=== PATIENT | female | born 2000 | race Caucasian/White ===

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

== ENCOUNTER → 2021-02-03 | Outpatient (CLI) | payer BC ==
--- NOTE | 2021-02-03 14:51 | REP ---
INDICATION: N63.10 RT BREAST LUMP W/PAIN. Patient is status post needle biopsy right breast mass October 11, 2017 which produce a diagnosis of fibroadenoma and surrounding benign breast parenchyma. The patient reports that the lump has progressively enlarged in the interval since that time. COMPARISON: Comparison sonography 10/11/2017. TECHNIQUE: A skin marker is affixed to the skin at the site of the palpable lump in the right breast.. Craniocaudal, mediolateral oblique, and mediolateral views of the right breast are obtained. 3D tomography is carried out. Targeted right breast sonography is performed. This mammogram was interpreted with the aid of an FDA-approved computer-aided detection system. FINDINGS: Heterogeneous fibroglandular background echotexture is seen. Mammographic images of the right breast demonstrate a macrolobulated large confluent masslike density projecting in the superomedial quadrant of the right breast. This has overall dimensions up to 9.6 cm. Its margins are well circumscribed. No microcalcification or spiculation is appreciated. No worrisome skin changes seen. The Volpara volumetric breast density pattern is C. Targeted ultrasound: Targeted right breast sonography demonstrates a macrolobulated hypoechoic mass versus 3 adjacent mass lesions in the right breast medially. The largest 3 components of this macrolobulated hypoechoic mass measure as follows: 5.2 x 2.9 x 4.2 cm, 1.4 x 0.7 x 1.3 cm, and 4.2 x 2.5 x 2.9 cm. These hypoechoic masses of the long axis parallel to the skin. There is some enhanced through transmission. The margins are well defined. IMPRESSION: BIRADS/ACR category 4 suspicious right breast mammographic and sonographic findings. Large solid macrolobulated mass versus masses in the right breast superiorly and medially. 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 Needle biopsy may not be international account representative of the pathology in the whole lesion because of the lesion size. Consider surgical excision. This patient's Tyrer-Cuzick lifetime breast cancer risk assessment score is 17.1%. RECOMMENDATION: Consider surgical excision.. The patient letter being requested is M4 dense. <Electronically signed by Lloyd Vang > 02/03/21 [id number]
== END ==
LOC: M WHC 10:46
PROVIDERS: ATTEND Advanced Practice Midwife
DX: R92.8 Other abnormal and inconclusive findings on diagnostic imaging of breast (principal); N63.15 Unspecified lump in the right breast, overlapping quadrants; Z86.018 Personal history of other benign neoplasm
CPT/HCPCS: 76642; 77065; G0279

== ENCOUNTER → 2021-02-23 | Outpatient (REF) | payer BC ==
[2021-02-23 15:32] LABS: HEMATOCRIT 42.1 % (36.0-47.0); HEMOGLOBIN 13.5 g/dl (12.0-15.5); MEAN CORPUSCULAR HEMOGLOBIN 27.6 pg (27.0-33.0); MEAN CORPUSCULAR HGB CONC 32.1 g/dl (32.0-36.5); MEAN CORPUSCULAR VOLUME 85.9 fl (80.0-96.0); PLATELET COUNT, AUTOMATED 303 10^3/uL (150-450); WHITE BLOOD COUNT 9.4 10^3/uL (4.0-10.0)
[2021-02-23 16:03] LABS: BLOOD UREA NITROGEN 17 MG/DL (7-18); CALCIUM LEVEL 9.1 MG/DL (8.5-10.1); CARBON DIOXIDE LEVEL 27 MEQ/L (21-32); CHLORIDE LEVEL 107 MEQ/L (98-107); GLOMERULAR FILTRATION RATE > 60.0 (>60); GLUCOSE, FASTING 79 MG/DL (70-100); POTASSIUM SERUM 4.2 MEQ/L (3.5-5.1); SODIUM LEVEL 139 MEQ/L (136-145)
== END ==
LOC: M PLALAB 12:11
PROVIDERS: ATTEND Surgery
DX: D24.1 Benign neoplasm of right breast (principal)

== ENCOUNTER → 2021-03-04 | Outpatient (CLI) | payer BC | LOC: M LABSMTC 11:42 | PROVIDERS: ATTEND Anesthesiology | DX: Z01.812 Encounter for preprocedural laboratory examination (principal); Z11.52 Encounter for screening for COVID-19 ==

== ENCOUNTER 2021-03-09 07:53 | Day surgery (SDC) | payer BC ==
[~2021-03-09] VITALS: Ht 177.8 cm; Wt 115.1 kg
[~2021-03-09 07:53] MED LIST changes: +HEPARIN SOD (PORCINE) 5000UNITS/ML 1ML VIAL/SYRINGE SQ ONE; -LIDOCAINE 1% MDV 20ML VIAL As Ordered; +LIDOCAINE 1% MDV 20ML VIAL SQ PRN; +LR 1,000 ML IV ONE; +ceFAZolin SOD 2 GM in IV 1 EA IV ONE
[2021-03-09] MEDS ORDERED: SCOPOLAMINE 1MG TRANSDERMAL PATCH TOP ONE (08:30)
[2021-03-09] MEDS ORDERED: fentaNYL 100 MCG/2 ML INJECTION (J3010) As Ordered ONE (09:19)
[2021-03-09] MEDS ORDERED: LIDOCAINE 2% 100MG/5ML SDV (FOR ANES.) As Ordered ONE (09:19)
[2021-03-09] MEDS ORDERED: dexameTHASONE 4 MG/ML 1ML VIAL (J1100 PER 1MG) As Ordered ONE (09:19)
[2021-03-09] MEDS ORDERED: MIDAZOLAM INJ 2MG/2ML VIAL (J2250 PER 1MG) As Ordered ONE (09:19)
[2021-03-09] MEDS ORDERED: propofoL 200 MG/20 ML VIAL As Ordered ONE (09:19)
[2021-03-09] MEDS ORDERED: ACETAMINOPHEN 1000MG 100ML IV BTL (OFIRMEV) (J0131 PER 10MG) As Ordered ONE (09:19)
[2021-03-09] MEDS ORDERED: ONDANSETRON 4MG/2ML VIAL As Ordered ONE (09:19)
[2021-03-09] MEDS ORDERED: LIDOCAINE 1% SDV 30ML VIAL As Ordered ONE (10:16)
[2021-03-09] MEDS ORDERED: BUPIVACAINE HCL 0.25% 30ML VIAL As Ordered ONE (10:16)
[2021-03-09] MEDS ORDERED: ONDANSETRON 4MG/2ML VIAL IV PRN (12:10)
[2021-03-09] MEDS ORDERED: LR 1,000 ML IV SCH (12:10)
[2021-03-09] MEDS ORDERED: fentaNYL 100 MCG/2 ML INJECTION (J3010) IV PRN (12:10)
[2021-03-09] MEDS ORDERED: oxyCODONE 5MG TAB PO PRN (12:10)
[2021-03-09] MEDS ORDERED: ROXI1TAB2 PO (12:31)
[2021-03-09 13:55] VITALS: BP 130/68
--- NOTE | 2021-03-09 17:04 | REP ---
INDICATION: RIGHT BREAST EXCISIONAL BIOPSY OF BREAST MASS -NO WIRE. COMPARISON: Comparison mammography February 03, 2021.. TECHNIQUE: Four views including photograph. FINDINGS: Specimen radiography demonstrates a macrolobulated smoothly marginated soft tissue mass without observable calcification. IMPRESSION: Specimen radiography demonstrates the removed macrolobulated soft tissue mass. <Electronically signed by Lloyd Vang > 03/09/21 0052
--- NOTE | 2021-03-12 13:23 | ROOPDOC ---
[facility] Report Of Operation Report of Operation DATE OF PROCEDURE: 03/09/21 PREPROCEDURE DIAGNOSES: large right breast mass POSTPROCEDURE DIAGNOSES: large right breast mass PROCEDURE: right breast excisional biopsy SURGEON: Blanca Figueroa ANESTHESIA: general ESTIMATED BLOOD LOSS: Approximately 25 mL. COMPLICATIONS: none REMARKS: multilobulated right breast mass excised measuring 9x5.5cm DESCRIPTION OF PROCEDURE: INDICATIONS: Ms. Day is a 20-year-old woman who was found to have a large palpable mass in the right breast. Diagnostic imaging was done and confirmed large suspicious mass in the right breast. Patient had biopsy of this lesion couple years ago which came back as fibroadenoma. Excision was recommended as the repeat bx likely will not be truly compliance representative dealer of entire lesion. Excisional biopsy of the right breast was offered to the patient. Risks and possible complications of surgical procedure including bleeding, infection and injury to surrounding structures were explained to the patient and she wished to proceed. Consent was signed. My initials were placed on the operative site. Subcutaneous injection of 5000 units of heparin was done in Preop. DETAILS: Patient was taken to the operating room and placed on the operating room table. A sign in was called stating patients name, date of and the procedure to be done. Preoperative antibiotics were infused. Smooth induction of general anesthesia was done. Patients hands were extended on arm rests. Care was taken not to over extend the arms. Pillow was placed under the knees and a foam was placed under the heels. Sequential compression devices were placed and assured to function correctly. Patients right breast and axilla were prepped and draped in the usual fashion. Appropriate time out was done. Patients name, date of , and the procedure to be done were confirmed. Next, local anesthetic using 1% lidocaine and 0.25 % Marcaine 50/50 mix was injected at the site of planned right periareolar incision. The incision was made with the scalpel. Subcutaneous skin flaps were raised. Palpation was used to guide the dissection. A large lobulated mass was felt and completely excised. This mass measured 9x5.5 cm. The specimen was marked with short superior stitch, long stitch lateral. Specimen was then placed on the grid and placed in [employer] Specimen Imaging System. The image revealed multilobulated mass and no clip. Of note clip was not seen on mammogram either even though patient had previous biopsy of this lesion. The specimen was labeled with patients name and right excisional biopsy and sent to pathology. Next, the wound was irrigated thoroughly and adequate hemostasis was assured. Additional local anesthetic was injected into surrounding tissues. space was approximated with 2-0 Vicryl. The dermis was closed with 3-0 Vicryl and skin was closed with 4-0 Monocryl. Surgical glue was placed over the incision. Patient emerged from the anesthesia without any problems. Fluffs were placed over the operative site and patients chest was wrapped snuggly in the LELA wrap. Sponge and instrument counts were done and were correct. Patient tolerated procedure well and was taken to recovery unit in stable condition. BLANCA FIGUEROA DO March 12, 2021 13:23
== END 2021-03-09 14:01 | disposition home or self-care (01) ==
LOC: M SDC 07:53
PROVIDERS: ATTEND Surgery
DX: N60.21 Fibroadenosis of right breast (principal); F41.9 Anxiety disorder, unspecified; F32.9 Major depressive disorder, single episode, unspecified
CPT/HCPCS: 19120; 36415; 81025; 86850; 86900; 86901; 88307; J0131; J0690; J1100; J1644; J2250; J2405; J3010

== ENCOUNTER → 2022-01-16 | Outpatient (CLI) | payer BC ==
[~2022-01-16] MED LIST changes: -HEPARIN SOD (PORCINE) 5000UNITS/ML 1ML VIAL/SYRINGE SQ ONE; -LIDOCAINE 1% MDV 20ML VIAL SQ PRN; -LR 1,000 ML IV ONE; +ROXI1TAB2 PO; -ceFAZolin SOD 2 GM in IV 1 EA IV ONE
[2022-01-16 15:11] LABS: BASO % 0.4 % (0.0-1.0); EOS # 0.1 10^3/uL (0.0-0.5); EOS % 1.2 % (0.0-3.0); HEMATOCRIT 41.3 % (36.0-47.0); HEMOGLOBIN 13.4 g/dl (12.0-15.5); LYMPH # 2.1 10^3/uL (1.5-5.0); LYMPH % 24.7 % (24.0-44.0); MEAN CORPUSCULAR HEMOGLOBIN 28.2 pg (27.0-33.0); MEAN CORPUSCULAR HGB CONC 32.4 g/dl (32.0-36.5); MEAN CORPUSCULAR VOLUME 86.8 fl (80.0-96.0); MONO # 0.5 10^3/uL (0.0-0.8); MONO % 6.3 % (2.0-8.0); NEUTROPHILS # 5.7 10^3/uL (1.5-8.5); PLATELET COUNT, AUTOMATED 253 10^3/uL (150-450); RED BLOOD COUNT 4.76 10^6/uL (4.00-5.40); WHITE BLOOD COUNT 8.5 10^3/uL (4.0-10.0)
[2022-01-16 15:41] LABS: ALBUMIN 3.5 GM/DL (3.2-5.2); ALT/SGPT 43 U/L (12-78); BILIRUBIN,TOTAL 0.3 MG/DL (0.2-1.0); BLOOD UREA NITROGEN 13 MG/DL (7-18); C REACTIVE PROTEIN QUANTITATIV 1.58 MG/DL (0.00-0.30); CALCIUM LEVEL 8.9 MG/DL (8.5-10.1); CARBON DIOXIDE LEVEL 28 MEQ/L (21-32); CHLORIDE LEVEL 110 MEQ/L (98-107); CREATININE FOR GFR 0.74 MG/DL (0.55-1.30); FREE T4 0.94 NG/DL (0.76-1.46); GLOMERULAR FILTRATION RATE > 60.0 (>60); GLUCOSE, FASTING 114 MG/DL (70-100); POTASSIUM SERUM 3.9 MEQ/L (3.5-5.1); SODIUM LEVEL 141 MEQ/L (136-145); TOTAL PROTEIN 7.1 GM/DL (6.4-8.2)
[2022-01-16 15:43] LABS: ERYTHROCYTE SEDIMENTATION RATE 20 mm/hr (0-20); TOTAL 25(OH) VITAMIN D 9.7 NG/ML (30.0-100.0)
[2022-01-18 23:11] LABS: ANA (HEP2) Negative (.)
== END ==
LOC: M PLALAB 14:20
DX: R42 Dizziness and giddiness (principal); R53.83 Other fatigue; M25.50 Pain in unspecified joint; G44.221 Chronic tension-type headache, intractable

== ENCOUNTER → 2022-03-07 | Outpatient (CLI) | payer BC ==
[2022-03-07 13:43] LABS: HEMOGLOBIN A1c 5.1 %
[2022-03-07 13:44] LABS: C REACTIVE PROTEIN QUANTITATIV 1.61 MG/DL (0.00-0.30); RHEUMATOID FACTOR QUANT < 10.0 IU/ML (<15.0)
== END ==
LOC: M PLALAB 09:20
PROVIDERS: ATTEND Physician Assistant
DX: R79.82 Elevated C-reactive protein (CRP) (principal)

== ENCOUNTER → 2022-10-30 | Outpatient (CLI) | payer SELFPAY ==
[2022-10-30 13:28] LABS: BASO % 0.3 % (0.0-1.0); EOS # 0.1 10^3/uL (0.0-0.5); EOS % 1.3 % (0.0-3.0); HEMATOCRIT 42.8 % (36.0-47.0); HEMOGLOBIN 13.3 g/dl (12.0-15.5); LYMPH # 1.8 10^3/uL (1.5-5.0); LYMPH % 23.8 % (24.0-44.0); MEAN CORPUSCULAR HEMOGLOBIN 27.5 pg (27.0-33.0); MEAN CORPUSCULAR HGB CONC 31.1 g/dl (32.0-36.5); MEAN CORPUSCULAR VOLUME 88.6 fl (80.0-96.0); MONO # 0.6 10^3/uL (0.0-0.8); MONO % 8.5 % (2.0-8.0); NEUTROPHILS # 4.9 10^3/uL (1.5-8.5); NEUTROPHILS % 65.8 % (36.0-66.0); PLATELET COUNT, AUTOMATED 276 10^3/uL (150-450); RED BLOOD COUNT 4.83 10^6/uL (4.00-5.40); WHITE BLOOD COUNT 7.5 10^3/uL (4.0-10.0)
[2022-10-30 13:54] LABS: ALBUMIN 3.6 G/DL (3.2-5.2); ALKALINE PHOSPHATASE 82 U/L (46-116); ALT/SGPT 29 U/L (7.0-40); AST/SGOT 19 U/L (<34); BILIRUBIN,TOTAL 0.4 MG/DL (0.3-1.2); BLOOD UREA NITROGEN 17 MG/DL (9-23); CARBON DIOXIDE LEVEL 28 MMOL/L (20-31); CHLORIDE LEVEL 108 MMOL/L (98-107); CREATININE FOR GFR 0.79 MG/DL (0.55-1.30); GLOMERULAR FILTRATION RATE > 60.0 (>60); GLUCOSE, FASTING 88 MG/DL (60-100); POTASSIUM SERUM 4.3 MMOL/L (3.5-5.1); SODIUM LEVEL 143 MMOL/L (136-145); TOTAL PROTEIN 6.7 G/DL (5.7-8.2)
[2022-10-30 13:57] LABS: THYROID STIMULATING HORMONE 1.695 uIU/ML (0.55-4.78)
[2022-10-30 14:01] LABS: FREE T4 1.08 NG/DL (0.89-1.76)
[2022-10-30 14:33] LABS: HEMOGLOBIN A1c 4.8 % (4.0-6.0)
== END ==
LOC: M PLALAB 10:48
PROVIDERS: ATTEND Psychiatry & Neurology Psychiatry
DX: F33.3 Major depressive disorder, recurrent, severe with psychotic symptoms (principal)